=== PATIENT | male | born 1965 | race Caucasian/White ===

== ENCOUNTER 2017-01-15 13:47 | Emergency (ER) | payer OTHER ==
[~2017-01-15] VITALS: Ht 182.9 cm; Wt 93.0 kg
[~2017-01-15 13:47] MED LIST: ALLO300T PO; ATOR10TA9 PO; PRAV20TA2 PO
[2017-01-15] MEDS ORDERED: CEFTRIAXONE PMX 1GM/50ML 50 ML ONE (14:56)
[2017-01-15] MEDS ORDERED: DIPH,PERTUSS(ACELL),TET VAC/PF 0.5 ML IM-VACC ONE ×2 (14:57→15:00)
[2017-01-15] MEDS ORDERED: CEFTRIAXONE PMX 1GM/50ML 50 ML IV ONE (15:00)
[2017-01-15] MEDS ORDERED: SODIUM CHLORIDE FLUSH 10ML SYR IVF ONE (15:00)
[2017-01-15 15:13] LABS: BLOOD UREA NITROGEN 29 mg/dL (7-18)
[2017-01-15 15:15] LABS: HEMOGLOBIN 15.9 g/dL (13.7-18.0)
[2017-01-15] MEDS ORDERED: IBUPROFEN 200 MG TABLET ONE (16:18)
[2017-01-15] MEDS ORDERED: IBUPROFEN 200 MG TABLET PO ONE (16:30)
[2017-01-15 17:19] VITALS: BP 147/96
== END 2017-01-15 17:50 | disposition home or self-care (01) ==
LOC: ED 17:20
DX: S82.101A Unspecified fracture of upper end of right tibia, initial encounter for closed fracture (principal); E78.00 Pure hypercholesterolemia, unspecified; W01.0XXA Fall on same level from slipping, tripping and stumbling without subsequent striking against object, initial encounter; Y93.89 Activity, other specified; Y99.8 Other external cause status; Y92.89 Other specified places as the place of occurrence of the external cause
CPT/HCPCS: 36415; 71010; 73564; 73590; 73700; 80048; 82040; 85025; 85610; 85730; 90471; 90715; 93005; 96365; 96366; 99285; J0696

== ENCOUNTER 2017-01-16 18:16 | Emergency (ER) | payer OTHER ==
[~2017-01-16] VITALS: Ht 182.9 cm; Wt 90.0 kg
[2017-01-16] MEDS ORDERED: ONDANSETRON 2MG/ML, 2ML IVPush ONE (19:00)
[2017-01-16] MEDS ORDERED: MORPHINE SULFATE 4 MG/ML, 1ML ONE (19:00)
[2017-01-16] MEDS ORDERED: ONDANSETRON 2MG/ML, 2ML ONE (19:00)
[2017-01-16] MEDS ORDERED: MORPHINE SULFATE 4 MG/ML, 1ML IVPush PRN (19:00)
[2017-01-16] MEDS ORDERED: SODIUM CHLORIDE FLUSH 10ML SYR IVF ONE (20:00)
[2017-01-16] MEDS ORDERED: SENNA/DOCUSATE TABLET PO PRN (20:30)
[2017-01-16] MEDS ORDERED: MORPHINE SULFATE 4 MG/ML, 1ML IV PRN (20:30)
[2017-01-16] MEDS ORDERED: ACETAMINOPHEN 325 MG TABLET PO PRN (20:30)
[2017-01-16] MEDS ORDERED: BISACODYL 10 MG SUPP PR PRN (20:30)
[2017-01-16] MEDS ORDERED: ALUMINUM/MAG/SIMETHICONE 30 ML UDC PO PRN (20:30)
[2017-01-16] MEDS ORDERED: PROMETHAZINE 25 MG/ML, 1ML IM PRN (20:30)
[2017-01-16] MEDS ORDERED: MAGNESIUM HYDROXIDE 8%, 30ML UDC PO PRN (20:30)
[2017-01-16] MEDS ORDERED: ONDANSETRON 2MG/ML, 2ML IV PRN (20:30)
[2017-01-16] MEDS ORDERED: OXYcodone 5 MG/5 ML ORAL.SOL UDC PO PRN (20:30)
[2017-01-16 20:34] VITALS: BP 134/79
== END 2017-01-16 20:35 | disposition home or self-care (01) ==
LOC: ED 20:04 → EDIP 20:11 → UNDOADMIN 20:11 → ED 20:35
DX: S82.121 Displaced fracture of lateral condyle of right tibia (principal); E78.00 Pure hypercholesterolemia, unspecified; M10.9 Gout, unspecified; W18.30XD Fall on same level, unspecified, subsequent encounter; Y93.89 Activity, other specified; Y99.8 Other external cause status; Y92.89 Other specified places as the place of occurrence of the external cause
CPT/HCPCS: 99281; 99283

== ENCOUNTER 2020-10-19 08:29 | Day surgery (SDC) | payer OTHER ==
[~2020-10-19] VITALS: Ht 180.3 cm; Wt 95.5 kg
[2020-10-19] MEDS ORDERED: FENO30CA PO (08:51)
[2020-10-19] MEDS ORDERED: PLEASE ENTER HEIGHT AND WEIGHT MC SCH (09:00)
[2020-10-19] MEDS ORDERED: SODIUM CHLORIDE 0.9% 1,000 ML IV SCH (09:00)
[2020-10-19 09:31] LABS: BASOPHILS % (AUTO) 1 % (0-1); EOSINOPHILS % (AUTO) 1 % (1-7); LYMPHOCYTES % (AUTO) 32 % (22-44); MEAN CORPUSCULAR HGB CONC 34.4 g/dL (33.2-36.2); MEAN PLATELET VOLUME 7.4 fL (7.4-10.4); MONOCYTES % (AUTO) 7 % (2-9); NEUTROPHILS % (AUTO) 59 % (42-75); PLATELET COUNT 214 x10^3/uL (130-400); RED BLOOD COUNT 5.18 x10^6/uL (4.38-5.82); RED CELL DISTRIBUTION WIDTH 13.1 % (9.4-14.8)
[2020-10-19 09:35] LABS: MD NO
[2020-10-19 09:44] LABS: ANION GAP 6 mmol/L (5-15); CALCIUM 8.9 mg/dL (8.5-10.1); CHLORIDE 114 mmol/L (98-107); CREATININE 1.25 mg/dL (0.7-1.3)
[2020-10-19] MEDS ORDERED: MIDAZOLAM 1 MG/ML, 5ML ONE (13:31)
[2020-10-19] MEDS ORDERED: LIDOCAINE 2%, 20ML ONE (13:31)
[2020-10-19] MEDS ORDERED: ISOPROTERENOL 0.2MG/ML, 5ML ONE (13:31)
[2020-10-19] MEDS ORDERED: FENTANYL PF 100 MCG/2ML ONE (13:31)
[2020-10-19] MEDS ORDERED: ATORVASTATIN 10 MG TABLET PO SCH (21:00)
[2020-10-20] MEDS ORDERED: ALLOPURINOL 300 MG TABLET PO SCH (09:00)
[2020-10-20] MEDS ORDERED: FENOFIBRATE PO SCH (09:00)
== END 2020-10-19 17:55 | disposition home or self-care (01) ==
LOC: CACL 08:29
PROVIDERS: ATTEND Internal Medicine Cardiovascular Disease
DX: I49.3 Ventricular premature depolarization (principal); E78.5 Hyperlipidemia, unspecified; Z79.899 Other long term (current) drug therapy; Z72.89 Other problems related to lifestyle
CPT/HCPCS: 36415; 71046; 80048; 85025; 93654; C1732; C1894; J2250; J3010